=== PATIENT | female | born 1940 | race Caucasian/White ===

== ENCOUNTER 2020-04-04 13:26 | Inpatient (IN) | payer OTHER ==
[~2020-04-04] VITALS: Ht 170.2 cm; Wt 69.4 kg
[2020-04-16] MEDS ORDERED: FENOFIBRATE PO (15:13)
[2020-04-16] MEDS ORDERED: LEVO-T25 MCG PO (15:13)
[2020-04-16] MEDS ORDERED: TOPROL XL50 M1 PO (15:14)
[2020-04-16] MEDS ORDERED: SIMVASTATIN20 MG PO (15:14)
[2020-04-30] MEDS ORDERED: FENOFIBRATE150 MG PO (11:27)
[2020-04-30] MEDS ORDERED: FENOFIBRATE145 MG PO (11:28)
[2020-04-30] MEDS ORDERED: AMLODIPINE BESYL5 MG PO (11:29)
[2020-05-03] MEDS ORDERED: SIMETHICONE125 M1 PO (11:25)
[2020-05-03] MEDS ORDERED: INTESTINEX680 M1 PO (11:25)
[2020-05-03] MEDS ORDERED: HYOSCYAMINE0.125 M1 SL (11:25)
== END 2020-05-03 12:32 | disposition home or self-care (01) | DRG 331 ==
LOC: OB/GYN 04-23 08:45 → O/R 04-30 08:20 → SURH 04-30 08:20
PROVIDERS: ADMIT Surgery; ATTEND Surgery
PROC: 07TB4ZZ Resection of Mesenteric Lymphatic, Percutaneous Endoscopic Approach (ICD-10-PCS; 2020-04-30)
PROC: 0DTF4ZZ Resection of Right Large Intestine, Percutaneous Endoscopic Approach (ICD-10-PCS; principal; 2020-04-30 14:45)
DX: C18.2 Malignant neoplasm of ascending colon (principal); R59.0 Localized enlarged lymph nodes; E03.8 Other specified hypothyroidism; I11.9 Hypertensive heart disease without heart failure; D50.9 Iron deficiency anemia, unspecified